=== PATIENT | male | born 1960 | race Caucasian/White ===

== ENCOUNTER 2022-01-30 14:36 | Emergency (ER) | payer OTHER ==
[2022-01-30 15:05] LABS: RED BLOOD COUNT 5.52 M/UL (4.20-5.50); WHITE BLOOD COUNT 15.5 K/UL (4.5-11.0)
[2022-01-30 15:23] LABS: BUN/CREATININE RATIO 22 (0-10)
[2022-01-30] MEDS ORDERED: FLORASTOR250 MG PO (20:01)
[2022-01-30] MEDS ORDERED: BENTYL 20MG TAB20 MG PO (20:01)
[2022-01-30] MEDS ORDERED: ZOFRAN ODT 4 MG4 MG SL (20:01)
== END 2022-01-30 20:14 | disposition home or self-care (01) ==
LOC: ER1 14:36
PROVIDERS: Emergency Medicine
DX: K52.9 Noninfective gastroenteritis and colitis, unspecified (principal); I10 Essential (primary) hypertension; E78.5 Hyperlipidemia, unspecified; E11.9 Type 2 diabetes mellitus without complications
CPT/HCPCS: 71045; 80053; 82550; 82553; 83690; 84484; 85025; 93005; 96374; 96375; 99284; J2270; J2405; J7030; Q9967

== ENCOUNTER → 2022-05-19 | Outpatient (CLI) | payer OTHER ==
[~2022-05-19] MED LIST: BENTYL 20MG TAB20 MG PO; FLORASTOR250 MG PO; ZOFRAN ODT 4 MG4 MG SL
== END ==
LOC: RAD 08:30
DX: M16.12 Unilateral primary osteoarthritis, left hip (principal)
CPT/HCPCS: J3301; Q9967